=== PATIENT | male | born 1945 | race Caucasian/White ===

== ENCOUNTER 2018-07-05 05:51 | Day surgery (SDC) | payer MEDICARE, SELFPAY ==
[2018-07-05] VITALS (7 sets, daily range): BP systolic 109–129; BP diastolic 70–72; PULSE 65–76; RESP 15–16; TEMP 36.1–36.6; O2SAT 92–100; BMI 22.1
[2018-07-05 06:37] LABS: Anion Gap 7 (5-15); BUN 20 mg/dL (7-18); BUN/Creat Ratio 14.8 RATIO (10-20); Chloride 98 mmol/L (98-107); Creatinine, Serum 1.35 mg/dL (0.70-1.30); EST Glomerular Filtration Rate 55 mL/min (>60); Est Glom Filt Rate - Afr Amer 67 mL/min (>60); Estimated Creatinine Clearance 50.23 ml/min; Glucose 101 mg/dL (74-106); Potassium 3.4 mmol/L (3.5-5.1); Sodium Level 134 mmol/L (136-145)
--- NOTE | 2018-07-05 06:48 | PCM.HP.BLA ---
History and Physical Date of Admission: 07/05/18 HISTORY AND PHYSICAL ? Bud Hawkins 1945 ? ? REFERRING PHYSICIAN: ??Kali Gil, DO ? CHIEF COMPLAINT: ??Consult (Consult Rt inguinal hernia) ? HPI: Bud is a 73 year old male with a complaint of a bulge?with minimal discomfort?in his right inguinal region. ?The patient denies true?discomfort in this area. ?The patient can reduce the right inguinal hernia when he is laying down. ? The patient notes no symptoms of bowel obstruction and denies nausea or vomiting. The patient was seen by his?primary care physician ?who felt the patient has a hernia. ?Bud was referred for evaluation and treatment. ? The patient is being seen by me today at the request of Dr. Kali Gil, DO?for my opinion and advice regarding a right inguinal hernia. ? ? PAST?MEDICAL?HISTORY PAST MEDICAL HISTORY Diagnosis Date ? Essential hypertension ? ? OCD (obsessive compulsive disorder) ? PAST?SURGICAL?HISTORY PAST SURGICAL HISTORY Procedure Laterality Date ? NONE ? CURRENT?MEDICATIONS ? Current Outpatient Prescriptions: amLODIPine (NORVASC) 5 mg tablet ? losartan-hydrochlorothiazide (HYZAAR) 100-25 mg per tablet ? Valsartan-Hydrochlorothiazide 160-12.5 mg per tablet ? methylphenidate (RITALIN) 10 mg tablet Take 10 mg by mouth three times daily. ARIPiprazole (ABILIFY) 10 mg tablet Take 10 mg by mouth once daily. venlafaxine ER (EFFEXOR XR) 150 mg 24 hr capsule Take 150 mg by mouth once daily. ginkgo biloba (GINKOBA ORAL) Take by mouth. VITAMIN E ORAL Take by mouth. ? No current facility-administered medications for this visit. ? ALLERGIES: Penicillins ? PERSONAL HISTORY: SOCIAL?HISTORY Social History ??Marital status: Unknown ?Spouse name: ?Years of education: ?Number of children: ? Social History Main Topics ??Smoking status: Never Smoker ?Smokeless tobacco: Never Used ?Alcohol use: No ?Drug use: No ? FAMILY HISTORY: FAMILY?HISTORY No family history on file. ? REVIEW OF SYMPTOMS: ??The review of systems data was entered by the nurse and reviewed by me ? Nursing Notes: Kylie Bajwa CAN DRYER ?05/06/2018 ?3:58 PM ?Signed REVIEW OF SYSTEMS: ?General:???The patient denies fatigue, denies weight loss, denies weight gain, denies feeling hot, and NOTES feelings of cold. ?Eyes: ?The patient denies glaucoma, denies eye injury/surgery, wears glasses or contacts. ?Ear/Nose/Throat: ?The patient denies allergies, denies hayfever, denies ear infections, and denies bloody noses. ?Cardiovascular: ?The patient denies chest pain, denies heart disease, NOTES high blood pressure,denies cardiac stent, denies prior heart attack, denies irregular heart beat, denies high cholesterol, ?denies poor circulation, denies heart failure, other cardiac issues, denies claudication, denies cold feet, denies peripheral arterial stent. ?Respiratory: ?The patient denies tuberculosis, denies pneumonia, denies frequent cough, denies pulmonary embolism, denies shortness of breath, and denies coughing up blood. ?Gastrointestinal: ?The patient denies difficulty swallowing, denies acid reflux, denies ulcers, denies vomiting, denies jaundice/hepatitis, denies gallbladder problems, denies black or tarry stools, denies hemorrhoids, denies bleeding from rectum, denies diverticulitis, denies constipation, denies diarrhea, denies loss of stool control, and NOTES hernias. ?Kidney/Bladder: ?The patient denies kidney stones, denies urine infections, and denies bloody urine. ?Skin: ?The patient denies a history of skin cancer, denies bleeding/changing moles, and denies a history of skin rash. ?Neurologic: ?The patient denies a history of epilepsy/convulsions, denies headaches, denies head/spinal injuries, and denies stroke/TIA. ?Psychiatric: ?The patient NOTES psychiatric medications, NOTES depression, and denies voices, denies substance abuse. ?Endocrine: ?The patient denies thyroid disorders, denies diabetes, and denies hormonal problems. ?Hematologic: ?The patient denies a history of bruising, denies bleeding, and denies anemia, denies blood clots. ?Infections: ?The patient denies a history of measles and mumps, denies rheumatic fever, and denies sexually transmitted diseases. ?Musculoskeletal: ?The patient denies back pain/injury, denies back problems, denies sciatica, denies knee/foot trouble, denies arthritis, or denies gout. ? ? When was patient's last Mammogram screening? N/A ? ?Last Colonoscopy: ?None ? Kylie Bajwa LPN ? PHYSICAL EXAMINATION: ? General: ?The patient is 73 year old male, well nourished, well hydrated in no acute distress. ?The patient is oriented to time, place, and person. ? VITALS: Blood pressure 146/76, pulse 68, height 172.7 cm (5' 8), weight 71.7 kg (158 lb).?Body mass index is 24.02 kg/m?.? ? HEENT: ?Normal cephalic, ataumatic, pupils are equally round, sclera are anicteric, mucous membranes are moist, oropharynx is clear. ?Neck has no masses, asymmetry or lymphadenopathy. ?Thyroid is unremarkable. ? Respiratory: ?Clear to auscultation and percussion. ?Normal respiratory excursion and pattern. ? Cardiac: ?Examination is regular rate and rhythm. ? Abdominal exam: ?Soft, nontender, ?with no palpable masses. ?No hepatosplenomegaly. ?A?moderate reducible right inguinal hernia and a smaller reducible left inguinal hernia on exam. ? Intraoffice ultrasound was performed which demonstrated and verified both the right and left inguinal hernias ? Rectal exam: ?exam deferred ? Extremities: ?no clubbing, cyanosis or edema. ?No adenopathy. ? Other: ? ? LABORATORY VALUES: As Noted ? RADIOLOGIC STUDIES: ?As Noted ? Assessment ? IMPRESSION: bilateral inguinal hernias ? PLAN: ??My plan is to perform a laparoscopic bilateral inguinal hernia repair with mesh. ?The planned surgical procedure was discussed extensively with the patient. ?The risks, benefits, anticipated outcomes and possible complications were mentioned. ?Bud wilsonands that all hernia repair surgery has a chance of recurrence and/or chronic post operative pain. ?My staff has also explained the procedure in understandable terms and the patient was given the option to take printed material concerning the planned procedure. ?The patient had the opportunity to ask questions concerning the planned procedure. ?The patient freely consents to the planned procedure. ? ? ? A letter was sent to Dr. Kali Gil, DO?indicating the above finding for this patient. ? Diagnoses: (K40.20) Non-recurrent bilateral inguinal hernia without obstruction or gangrene ?(primary encounter diagnosis) ? Anticipated CPT Code: laparoscopic bilateral inguinal hernia repair with mesh - 71523 x 2-000 ? Anticipated Anesthetic: General ? Patient weight: ?Blood pressure 146/76, pulse 68, height 172.7 cm (5' 8), weight 71.7 kg (158 lb).?BMI: ?Body mass index is 24.02 kg/m?. ? Planned antibiotic: clindamycin 900mg IVPB relationship management lead to OR ? SCDs needed - Yes ? Return to Clinic: The patient is instructed to follow-up with me 1 week post operatively. ? Andrés Garcia MD
--- NOTE | 2018-07-05 07:09 | EKG12_ITS ---
Test Reason : PREOP Blood Pressure : / mmHG Vent. Rate : 072 BPM Atrial Rate : 072 BPM P-R Int : 172 ms QRS Dur : 106 ms QT Int : 386 ms P-R-T Axes : 071 051 047 degrees QTc Int : 422 ms Normal sinus rhythm Normal ECG Confirmed by DARWIN OLIVA, ALISON ([id number]), editorial writer BENJAMIN CARLOS ([id number]) on 07/08/2018 8:51:21 AM Referred By: Andrés Garcia Confirmed By:ALISON GRANADOS MD
[2018-07-05] MEDS: Bupivacaine Mpf 0.5% 30 ML VIAL (08:55)
--- NOTE | 2018-07-05 08:58 | PCM.OPRPT ---
Report of Operation Date of Procedure: 07/05/18 Pre-Operative Diagnosis: right, suspectedc left inguinal hernia Post-Operative Diagnosis: bilateral direct inguinal hernia Surgery/Procedure Performed:: bilateral laparoscopic inguinal hernia with medium bard 3 d - max mesh Description of Surgical Findings:: right-Bard 3-D Max mesh reference #[id number] lot number [id number] expires 10/03/2022 left-Bard 3-D Max mesh reference number [id number] lot [id number] 09/02/2021 Type of Anesthesia:: General Specimen's removed: none Drains: urine 250 Estimated Blood Loss (mL): 20 Fluids Replaced: 1150 Description of Procedure: The patient was brought to the operating suite. Sign in was performed verifying patient, site, procedure, position, and DVT prophylaxis with SCDs. Patient received 100 mg clindamycin antibiotic prophylaxis. Following induction of general anesthetic, a horta catheter was placed. The patient?s abdomen was prepped and draped in the usual fashion. Timeout was performed verifying patient, site, position. Local anesthetic was injected below the umbilicus. Incision made and dissection carried down to the umbilical root fascia. 2 stay sutures were placed. Incision made in the fascia, the peritoneum entered under direct visualization. A 10 mm Lama trocar was inserted and secured with the stay sutures. Pneumoperitoneum to 15 mmHg was insufflated. Visual inspection revealed an obvious right direct inguinal hernia with small bowel within the hernia defect and an obvious left direct inguinal hernia also with small bowel defect. 2 - 5mm ports were placed in the standard position. The peritoneum was incised and prepared and the dissection was carried out along the space down to the preperitoneal space of the inguinal canal. Dissection was carried down identifying the pubic tubercle, Sebastian?s ligament, the inferior epigastric vessels, and lateral dissection. A defect was noted Following this, a Bard 3-D Max mesh was placed in the right inguinal space. This was secured with a pro-tack tacker along Sebastian?s ligament. The mesh was then further secured over the transversus arch using a secure strap absorbable tacker. Following this, the peritoneum was closed with a running 3-0V lock suture sewn laparoscopically. a similar procedure was performed for the left inguinal space. 5 ports were removed under direct visualization with no signs of bleeding. Pneumoperitoneum was released. The Lama trocar was removed. The umbilical fascial suture was secured area did skin was closed with interrupted 4-0 Monocryl subcuticular sutures. Steri-Strips and bandages were applied. The patient was brought to recovery room in stable condition. - Admit VTE Documentation VTE Present on Admission: No VTE Mechan Device Prophylaxis: SCD's VTE Pharm Prophylaxis ordered?: No
--- NOTE | 2018-07-05 09:03 | OP.PCM_ITS ---
Report of Operation Date of Procedure: 07/05/18 Pre-Operative Diagnosis: right, suspectedc left inguinal hernia Post-Operative Diagnosis: bilateral direct inguinal hernia Surgery/Procedure Performed:: bilateral laparoscopic inguinal hernia with medium bard 3 d - max mesh Description of Surgical Findings:: right-Bard 3-D Max mesh reference #[id number] lot number [id number] expires 10/03/2022 left-Bard 3-D Max mesh reference number [id number] lot [id number] 09/02/2021 Type of Anesthesia:: General Specimen's removed: none Drains: urine 250 Estimated Blood Loss (mL): 20 Fluids Replaced: 1150 Description of Procedure: The patient was brought to the operating suite. Sign in was performed verifying patient, site, procedure, position, and DVT prophylaxis with SCDs. Patient received 100 mg clindamycin antibiotic prophylaxis. Following induction of general anesthetic, a horta catheter was placed. The patient?s abdomen was prepped and draped in the usual fashion. Timeout was performed verifying patient, site, position. Local anesthetic was injected below the umbilicus. Incision made and dissection carried down to the umbilical root fascia. 2 stay sutures were placed. Incision made in the fascia, the peritoneum entered under direct visualization. A 10 mm Lama trocar was inserted and secured with the stay sutures. Pneumoperitoneum to 15 mmHg was insufflated. Visual inspection revealed an obvious right direct inguinal hernia with small bowel within the hernia defect and an obvious left direct inguinal hernia also with small bowel defect. 2 - 5mm ports were placed in the standard position. The peritoneum was incised and prepared and the dissection was carried out along the space down to the preperitoneal space of the inguinal canal. Dissection was carried down identifying the pubic tubercle, Sebastian?s ligament, the inferior epigastric vessels, and lateral dissection. A defect was noted Following this, a Bard 3-D Max mesh was placed in the right inguinal space. This was secured with a pro-tack tacker along Sebastian?s ligament. The mesh was then further secured over the transversus arch using a secure strap absorbable tacker. Following this, the peritoneum was closed with a running 3-0V lock suture sewn laparoscopically. a similar procedure was performed for the left inguinal space. 5 ports were removed under direct visualization with no signs of bleeding. Pneumoperitoneum was released. The Lama trocar was removed. The umbilical fascial suture was secured area did skin was closed with interrupted 4-0 Monocryl subcuticular sutures. Steri-Strips and bandages were applied. The patient was brought to recovery room in stable condition. - Admit VTE Documentation VTE Present on Admission: No VTE Mechan Device Prophylaxis: SCD's VTE Pharm Prophylaxis ordered?: No
--- NOTE | 2018-07-05 09:08 | DCINST_ITS ---
Discharge Diet: Light diet - advance as tolerated Discharge Activity: Return to Normal Activity, May Drive - when you are no longer taking narcotic pain medications., May Shower - with the bandage in place 1-2 days after surgery. Lifting Restrictions: 20 pounds for 8 weeks. Additional Activity Instructions:: Climbing stairs is fine, walking is encouraged. Sitting in bed may be uncomfortable. Sitting up using your lateral muscles (sitting up sideways) is usually more comfortable. Do not drive, work heavy equipment of sign legal documents for 24 hours. If your hernia repair was an ingunial repair, you may have scrotal swelling, an ice pack and/or athletic support can provide more comfort. Pain medications may cause nausea, you should typically eat light foods as you take your pain medications. Pain medications may also cause constipation. If you have difficulty with this, discuss with your doctor. Call your doctor if your incision/area has: Continuous Slow Oozing, Sudden Increased Bleeding, Increased Pain/ Swelling, Increased Redness, Foul Smelling Discharge Call your doctor if you observe: Fever of 101 or Higher Suture Line Care: Avoid Pulling/Pushing, Avoid Pinching/Bending Additional Dressing/Incision Instructions:: Leave the operative bandage on for 2-3 days. When you remove the bandage, leave the steri-strips on place until your follow up appointment or they fall off. Allergies/Adverse Reactions: Allergies Penicillins Allergy (Verified 06/28/18 10:09) Hives Medications to take at Discharge Amlodipine Besylate 5 mg PO DAILY 06/28/18 Aripiprazole [Abilify] 2 mg PO DAILY 06/28/18 Methylphenidate HCl [Methylphenidate ER] 10 mg PO DAILY 06/28/18 Valsartan/Hydrochlorothiazide [Valsartan-Hctz 160-25 mg Tab] 1 tab PO DAILY 06/28/18 Venlafaxine HCl [Effexor Xr] 37.5 mg PO DAILY 06/28/18 Oxycodone [Oxyir] 5 mg PO Q6H PRN PRN 7 Days #12 tab 07/05/18 The following prescriptions were given: Oxycodone [Oxyir] 5 mg PO Q6H PRN PRN 7 Days #12 tab PRN Reason: Severe Pain (6-10/10) Orders to be completed after discharge: 12 Lead EKG [[facility]] Location: None Selected Basic Metabolic Profile (BMP) Location: Laboratory Primary Care Physician: Kali Gil DO [Primary Care Provider] - Test Results: Test results from this visit will be discussed in further detail at your follow- up appointment, if applicable. Please Follow Up With: Andrés Garcia MD - [phone] When: Plan to have a follow up appointment in 7 days. Call to schedule.
[2018-07-05] MEDS: oxyCODONE 5 MG Tablet PO (10:35)
== END 2018-07-05 12:11 | disposition home or self-care (01) ==
LOC: SDC 05:52 → AC 05:53
PROVIDERS: Anesthesiology; Family Provider Family Medicine; PCP Family Medicine; Referring Provider Surgery; Visit Provider Surgery
PROC: (CPT 49650; principal; 2018-07-05 07:10)
DX: K40.20 Bilateral inguinal hernia, without obstruction or gangrene, not specified as recurrent (principal); F41.9 Anxiety disorder, unspecified; F32.9 Major depressive disorder, single episode, unspecified; Z79.899 Other long term (current) drug therapy; I10 Essential (primary) hypertension; F42.9 Obsessive-compulsive disorder, unspecified
CPT/HCPCS: 00830; 49505; 36415; 80048; 93005; J7120; C1781; J2405

== ENCOUNTER → 2020-02-14 | Outpatient (CLI) | payer MEDICARE, SELFPAY ==
[2018-07-05 06:18] VITALS: BMI 22.1
== END | disposition home or self-care (01) ==
PROVIDERS: PCP Family Medicine; Referring Provider Nurse Practitioner Adult Health; Visit Provider Nurse Practitioner Adult Health
DX: N39.0 Urinary tract infection, site not specified (principal)
CPT/HCPCS: 87077; 87086; 87088; 87186

== ENCOUNTER → 2020-10-22 13:37 | Outpatient (CLI) | payer MEDICARE, SELFPAY ==
[2018-07-05 06:18] VITALS: BMI 22.1
[2020-10-22 15:18] LABS: Anion Gap 4 (5-15); BUN 24 mg/dL (7-18); BUN/Creat Ratio 21.2 RATIO (10-20); Chloride 102 mmol/L (98-107); Creatinine, Serum 1.13 mg/dL (0.70-1.30); EST Glomerular Filtration Rate 67 mL/min (>60); Est Glom Filt Rate - Afr Amer 82 mL/min (>60); Glucose 101 mg/dL (74-106); Potassium 3.6 mmol/L (3.5-5.1); Sodium Level 137 mmol/L (136-145)
== END ==
PROVIDERS: PCP Student in an Organized Health Care Education/Training Program; Visit Provider Student in an Organized Health Care Education/Training Program
DX: N18.2 Chronic kidney disease, stage 2 (mild) (principal); I12.9 Hypertensive chronic kidney disease with stage 1 through stage 4 chronic kidney disease, or unspecified chronic kidney disease; E87.1 Hypo-osmolality and hyponatremia
CPT/HCPCS: 36415; 80048

== ENCOUNTER 2020-10-28 13:22 | Emergency (ER) | payer MEDICARE, SELFPAY ==
[2018-07-05 06:18] VITALS: BMI 22.1
[2020-10-28 13:23] VITALS: BP 128/69; PULSE 84; RESP 16; TEMP 36.7; O2SAT 97; BMI 21.9
--- NOTE | 2020-10-28 14:11 | RAD_ITS ---
STUDY: X-RAY - LEFT FEMUR REASON FOR STUDY: Male, 75 years old. Pain, no history of trauma. TECHNIQUE: AP and lateral view(s) of the femur. COMPARISON: None. FINDINGS: Deformity of the mid third of the femoral shaft could be due to old injury. No demonstrated acute fracture. Mild focal cortical thickening of the medial aspect of the mid femoral shaft. Possible adjacent soft tissue swelling. RAD/Femur Min 2 Views IMPRESSION: Deformity of the mid third of the femoral shaft with questionable mild cortical thickening. Further evaluation with MRI is recommended. No demonstrated acute fracture. Electronically Signed: Jordan Thurman MD at 15:13 EDT Tel , Service support ,
--- NOTE | 2020-10-28 14:13 | ED.VIS.LOWEX ---
HPI History of Present Illness HPI Narrative: Older male atraumatic intermittent left thigh pain. Chief Complaint: Lower Extremity Injury Informant: patient and spouse/S.O. Occured/Mechanism Mechanism/Context: Yes unknown Onset/Context/Timing Onset: Days Timing: Intermittent Quality of Pain: Aching Current Severity: Mild Maximum Severity: Mild Narrative Narrative: 75-year-old male history of hypertension. States since he has had intermittent pain in his left thigh. No fall injury or trauma. No history of DVT or PE. No recent travel surgery or immobilization. No fever or chills. No swelling. It usually worse at night. Sometimes worse with ambulation. He denies any trauma whatsoever. Is never had pain like this before. Currently he says is not too bad. Prior similar symptoms: No Recent Illness/Hospitalization: No PFSH COUNTS INCLUDE 234 BEDS AT THE [facility] Medical History (Updated 10/28/20 @ 15:[address] Mirza Ibrahim MD) Depression Hernia Hypertension Home Medications amlodipine 5 mg PO DAILY 06/28/18 [History Last Taken Unknown] aripiprazole 2 mg PO DAILY 06/28/18 [History Last Taken Unknown] methylphenidate HCl 10 mg PO DAILY 06/28/18 [History Last Taken 07/05/18 04:00] valsartan-hydrochlorothiazide 1 tab PO DAILY 06/28/18 [History Last Taken Unknown] venlafaxine [Effexor XR] 37.5 mg PO DAILY 06/28/18 [History Last Taken Unknown] hydrocodone-acetaminophen 1 tab PO Q6H PRN 4 Days #14 tab 10/28/20 [Rx Last Taken Unknown] Allergy/AdvReac Type Severity Reaction Status Date / Time oxycodone Allergy Swelling Verified 10/28/20 13:23 Penicillins Allergy Swelling Verified 10/28/20 13:23 Social History Smoking Status: Never smoker ROS ROS ED ROS Narrative Patient denies any recent illness. He denies any nausea, vomiting, diarrhea or fever. Review of Systems ROS Unobtainable: Denies due to encephalopathy Constitutional Constitutional ED: Denies chills or fever(s) Eyes Eyes: Denies change in vision ENT ENT ED: Denies ear pain or sore throat Cardiovascular Cardiovascular: Denies chest pain Respiratory/Chest Respiratory/Chest: Denies dyspnea Gastrointestinal Gastrointestinal: Denies abdominal pain, diarrhea, nausea or vomiting Genitourinary Genitourinary ED: Denies dysuria Musculoskeletal Musculoskeletal: Denies myalgias Integumentary Denies rash Neurologic Neurologic: Denies headache(s) Psychiatric Psychiatric: Denies depression Endocrine Endocrinology: Denies polyuria Hematologic/Lymphatic Hematologic/Lymphatic: Denies easy bruising Allergic/Immunologic Allergic/Immunologic ED: Denies urticaria EXAM Physical Exam Narrative Exam Narrative: Older male no acute distress. Vital signs stable afebrile. Heart and lung and abdominal exam unremarkable. Nontender. Left thigh appears normal. Normal femoral pulse. Normal DP pulse. Full range of motion of left hip, knee and ankle. No swelling. No deformity. No redness. The thigh itself is nontender without any signs of trauma or swelling. There is no edema or cords. He has normal motor strength and sensation of the left leg and foot. Const Vital Signs: 10/28/20 13:23 Temperature 98.0 F Temperature Source Temporal Pulse Rate 84 Respiratory Rate 16 Blood Pressure 128/69 H Blood Pressure Mean 88 Pulse Ox 97 Oxygen Delivery Method Room Air Positive well nourished and well developed General Appearance ED: well developed HEENT normocephalic and atraumatic Eyes PERRL Neck full ROM and supple Thyroid: Negative for tender Chest Wall inspection of chest normal Resp normal respiratory effort Cardio regular rate, regular rhythm and no murmurs GI non-tender, non-distended and no masses Auscultation: normoactive bowel sounds Palpation: soft; Negative for tender Back/Spine no CVA tenderness Extremity normal to inspection and full ROM General Extremety ED: Negative for cyanosis or edema General Extremity: Negative for cyanosis or edema Neuro oriented x3 and CN's II-XII intact bilaterally Sensorium / Orientation: alert, oriented to person, oriented to place and oriented to time Psych mental status grossly normal Skin Rashes: no rashes MDM MDM MDM Narrative Medical decision making narrative: Patient has atraumatic left thigh pain. Has a normal exam. X-ray being obtained. He has no risk factors for DVT or PE. Repeat exam at 3:15 shows no change. Patient can ambulate. He will have an outpatient venous study ordered even though my suspicion for DVT is very low. He will be written for Nasseo for pain. Follow-up with his primary care physician. 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 Further evaluation with MRI is recommended. No demonstrated acute fracture. Electronically Signed: Jordan Thurman MD at 15:13 EDT Tel , Service support , Left femur x-ray 2 view shows no acute abnormality. This is interpreted by myself and also the radiologist. There is a deformity of bone patient had an old femur fracture at a much younger age and I suspect this is the way it is healed. I went over the films with the patient and his spouse. Discharge Plan Triage Chief Complaint: Lower Extremity Injury ED Provider: Mirza Ibrahim Dx/Rx/DC Orders Clinical Impression: Musculoskeletal pain of left lower extremity Prescriptions: New hydrocodone-acetaminophen 5-325 mg tablet 1 tab PO Q6H PRN (Reason: pain) 4 Days Qty: 14 RF: 0 No Action venlafaxine [Effexor XR] 37.5 MG capsule,extended release 24hr 37.5 mg PO DAILY RF: 0 methylphenidate HCl 10 MG tablet extended release 10 mg PO DAILY RF: 0 amlodipine 5 MG tablet 5 mg PO DAILY RF: 0 valsartan-hydrochlorothiazide 160-25M tablet 1 tab PO DAILY RF: 0 aripiprazole 2 MG tablet 2 mg PO DAILY RF: 0 Primary Care Provider: Charli Santana Referrals: Charli Santana DO [Primary Care Provider] - Activity Restrictions/Additional Instructions: Vascular lab will call you tomorrow to set up a time usually in the morning to do an ultrasound of your leg to rule out a blood clot. Andrews for more severe pain. Make sure you drink plenty of fluids and fiber to prevent constipation. Follow-up with your doctor if not improving. Disposition Disposition: Home, self care
== END 2020-10-28 15:37 | disposition home or self-care (01) ==
PROVIDERS: Emergency Provider Emergency Medicine; PCP Student in an Organized Health Care Education/Training Program
DX: M79.652 Pain in left thigh (principal); I10 Essential (primary) hypertension; F32.9 Major depressive disorder, single episode, unspecified; Z79.899 Other long term (current) drug therapy
CPT/HCPCS: 73552; 99282

== ENCOUNTER → 2020-10-29 13:51 | Outpatient (CLI) | payer MEDICARE, SELFPAY ==
[2020-10-28 13:23] VITALS: BMI 21.9
--- NOTE | 2020-10-29 13:55 | VDLE_ITS ---
Reason For Study: LLE PAIN RIGHT LEFT CFV is compressible, spontaneous, phasic, GSV is normal. competent and demonstrates normal CFV is compressible, spontaneous, phasic, augmentation. competent, and demonstrates normal Procedure augmentation. This is a venous duplex using B-mode, color FV is compressible, spontaneous, phasic, flow and spectral Doppler. competent and demonstrates normal Exam performed in department. augmentation. The exam was diagnostic. POP V is compressible, spontaneous, phasic, A preliminary report was called and/or faxed competent and demonstrates normal to Dr. Charli Santana @ [phone] @ 2:15 pm. augmentation. T/P Trunk is compressible. PTV is compressible. LT PerV is compressible. VL/Venous Duplex US, Unilateral Interpretation Summary There is no evidence of left lower extremity deep vein thrombosis. Left great s aphenous vein appears patent and compressible segmentally. Normal flow patterns right common femoral vein Ordering Physician: Mirza Ibrahim Referring Physician: Charli Santana Performed By: Anne Ca, MARKELLCS, RVT
== END ==
PROVIDERS: PCP Student in an Organized Health Care Education/Training Program; Referring Provider Emergency Medicine; Visit Provider Emergency Medicine
DX: M79.652 Pain in left thigh (principal)
CPT/HCPCS: 93971

== ENCOUNTER → 2020-12-07 15:59 | Outpatient (CLI) | payer MEDICARE, SELFPAY ==
--- NOTE | 2020-12-07 16:45 | MRI_ITS ---
HISTORY: LEFT femur pain, abnormal xray. Hx of left femur fracture as a child, recent new injury. TECHNIQUE: Routine MRI protocol was performed of the left femur. IV Contrast dosage and agent: None. # of images incl. paperwork: 224. COMPARISON: XR 10/28/2020. FINDINGS: BONE: Mild cortical thickening and faint sclerosis of the left mid femoral diaphysis without associated bone marrow edema or confluent T1 signal abnormality. No acute fracture or other acute bone marrow signal abnormality identified. JOINTS: Normal alignment of the left hip without dislocation. SOFT TISSUES: Mild anterior compartment and posterior compartment intramuscular edema in the distal thigh, inferior extent incompletely imaged. No extraosseous soft tissue mass or fluid collection in the left thigh. Intact visualized hamstring and iliopsoas tendinous attachments. OTHER: Trace left scrotal hydrocele. MRI/Lower Ext/No Jt/w/o IMPRESSION: Chronic fracture of the left mid femoral shaft. No acute fracture identified in the left femur. Mild intramuscular edema anteriorly and posteriorly in the distal thigh, from mild strain or myositis. at 1623 Reported and signed by: Risa Mays MD Electronically Signed: Risa Mays MD at 16:22 EDT Tel , Service support ,
== END ==
PROVIDERS: PCP Student in an Organized Health Care Education/Training Program; Referring Provider Student in an Organized Health Care Education/Training Program; Visit Provider Student in an Organized Health Care Education/Training Program
DX: M89.8X5 Other specified disorders of bone, thigh (principal); M79.652 Pain in left thigh; Z87.81 Personal history of (healed) traumatic fracture
CPT/HCPCS: 73718

== ENCOUNTER → 2020-12-17 | Outpatient (CLI) | payer MEDICARE, SELFPAY | END | disposition home or self-care (01) | LOC: LABSPEC 15:52 | PROVIDERS: PCP Student in an Organized Health Care Education/Training Program; Visit Provider Nurse Practitioner Adult Health | DX: R82.998 Other abnormal findings in urine (principal) | CPT/HCPCS: 87086; 87088; 87186 ==

== ENCOUNTER → 2021-01-03 12:56 | Outpatient (CLI) | payer MEDICARE, SELFPAY ==
--- NOTE | 2021-01-03 13:00 | CT_ITS ---
STUDY: CT ABDOMEN AND PELVIS WITHOUT CONTRAST REASON FOR EXAM: Male, 75 years old. Recurrent urinary tract infection. CHRONIC CYSTITIS WO HEMATURIA RADIATION DOSAGE (If Supplied By Facility): CTDIvol = ( 8.34 ) mGy, DLP = ( 402.30 ) mGycm TECHNIQUE: Transaxial images were obtained from the dome of the diaphragm to the symphysis pubis without oral contrast, and without intravenous contrast. Sagittal and coronal images were reconstructed. Individualized dose optimization techniques were used for this CT. COMPARISON: None. FINDINGS: The visualized lung bases are unremarkable. The visualized portions of the heart are within normal limits. Normal liver. Normal gallbladder and extrahepatic biliary system. There are multiple benign calcified granulomata of the spleen. Normal pancreas. Normal bilateral adrenal glands. Normal right kidney. Normal left kidney. There is a moderate hiatal hernia. Normal small intestine. Normal colon. There is moderate stool. The appendix is visualized and appears normal. Normal abdominal aorta. Normal inferior vena cava. Normal retroperitoneum. There is diffuse wall thickening of the urinary bladder. There is enlargement of the prostate gland. There is no free fluid in the abdomen or pelvis. There is postoperative change of the lower abdominal wall. Degenerative change of the lower spine. CT/Abdomen/Pelvis without Cont IMPRESSION: No stones or hydronephrosis. Enlarged prostate. Wall thickening of the urinary bladder. Hiatal hernia. Electronically Signed: Nick Pino MD at 17:12 EDT , Service support ,
[2021-01-03 15:25] LABS: PSA,Total - Annual Screen 3.27 ng/mL (0.00-4.00)
== END ==
PROVIDERS: PCP Student in an Organized Health Care Education/Training Program; Referring Provider Nurse Practitioner Adult Health; Visit Provider Nurse Practitioner Adult Health
DX: N30.20 Other chronic cystitis without hematuria (principal); Z12.5 Encounter for screening for malignant neoplasm of prostate
CPT/HCPCS: 36415; 74176; 84153; G0103

== ENCOUNTER → 2022-07-10 | Outpatient (CLI) | payer MEDICARE, SELFPAY ==
[2022-07-10 15:26] LABS: Hematocrit 42.5 % (40-54); Hemoglobin 14.3 g/dL (13.0-16.5); Mean Corp Hgb Conc 33.6 g/dL (32-36); Mean Platelet Vol. 8.9 fl (6.2-12.0); Platelet Count 312 K/mm3 (150-450); RBC Distribution Width CV 11.7 % (11.6-14.6); RBC Distribution Width SD 39.5 fl (35.1-43.9); Red Blood Count 4.62 M/mm3 (4.6-6.2); White Blood Count 7.7 K/mm3 (4.4-11.0)
[2022-07-10 16:04] LABS: ALB/GLOB Ratio 1.3 RATIO (0.9-2.4); AST(SGOT) 30 U/L (15-37); Alanine Aminotransfer ALT/SGPT 27 U/L (16-61); Alkaline Phosphatase 88 U/L (45-117); Anion Gap 9 (5-15); BUN 23 mg/dL (7-18); BUN/Creat Ratio 16.9 RATIO (10-20); Calcium,Total 9.2 mg/dL (8.5-10.1); Chloride 95 mmol/L (98-107); Cholesterol 136 mg/dL (200); Creatinine, Serum 1.36 mg/dL (0.70-1.30); EST Glomerular Filtration Rate 54 mL/min (>60); Est Glom Filt Rate - Afr Amer 66 mL/min (>60); Globulin 3.1 g/dL (2.2-4.2); Glucose 95 mg/dL (74-106); High Density Lipoprotein 53 mg/dL; PSA,Total - Annual Screen 5.14 ng/mL (0.00-4.00); Potassium 3.7 mmol/L (3.5-5.1); Protein, Total 7.1 g/dL (6.4-8.2); Sodium Level 133 mmol/L (136-145); Triglycerides 121 mg/dL; Very Low Density Lipoprotein 24 mg/dL (5-40)
[2022-07-10 16:37] LABS: Hepatitis C Antibody Non-Reactive (Nonreactive)
== END | disposition home or self-care (01) ==
PROVIDERS: PCP Student in an Organized Health Care Education/Training Program; Visit Provider Student in an Organized Health Care Education/Training Program
DX: Z00.00 Encounter for general adult medical examination without abnormal findings (principal); I10 Essential (primary) hypertension; N40.1 Benign prostatic hyperplasia with lower urinary tract symptoms; N39.0 Urinary tract infection, site not specified; Z12.5 Encounter for screening for malignant neoplasm of prostate; Z11.59 Encounter for screening for other viral diseases
CPT/HCPCS: 36415; 80053; 80061; 84153; 85027; 86803; G0103

== ENCOUNTER 2022-07-11 15:41 | Emergency (ER) | payer MEDICARE, SELFPAY ==
[2022-07-11 15:42] VITALS: BP 116/67; PULSE 84; RESP 18; TEMP 36.7; O2SAT 99; BMI 21.9
--- NOTE | 2022-07-11 17:21 | EX.ED.DYSGE1 ---
HPI History of Present Illness Chief Complaint: Allergic Reaction Informant: patient and spouse/S.O. Narrative Narrative: Patient presents with a rash that started after Bactrim. Patient has BPH. He is going to have surgery for this. He has been getting recurrent UTIs for a while. If he is kept on antibiotics he does well. His primary physician put him on Bactrim. He just saw his urologist and they restarted this until surgery. He has been on this for about 2 weeks now. Over the last day or so he has developed a rash really throughout his body. He states it does itch but it does not hurt. He does not feel sick. No fevers or chills. No trouble breathing. He is not having any urinary symptoms. [facility] Medical History Depression Hernia Hypertension Rash Home Medications amlodipine 5 mg tablet 5 mg PO DAILY 06/28/18 [History Last Taken Unknown] aripiprazole 2 mg tablet 2 mg PO DAILY 06/28/18 [History Last Taken Unknown] methylphenidate HCl 10 mg tablet,extended release 10 mg PO DAILY 06/28/18 [History Last Taken 07/05/18 04:00] valsartan 160 mg-hydrochlorothiazide 25 mg tablet 1 tab PO DAILY 06/28/18 [History Last Taken Unknown] venlafaxine 37.5 mg capsule,extended release 24 hr (Effexor XR) 37.5 mg PO DAILY 06/28/18 [History Last Taken Unknown] hydrocodone-acetaminophen 5-325mg 5mg-325mg 1 tab PO Q6H PRN pain 4 days #14 tabs 10/28/20 [Rx Last Taken Unknown] nitrofurantoin monohydrate/macrocrystals 100 mg capsule 100 mg PO Q12 #14 CAPSULES 07/11/22 [Rx Last Taken Unknown] Allergy/AdvReac Type Severity Reaction Status Date / Time oxycodone Allergy Swelling Verified 07/11/22 15:43 Penicillins Allergy Swelling Verified 07/11/22 15:43 Social History Smoking Status: Never smoker ROS ROS ED Constitutional Constitutional ED: Denies chills, fever(s) or subjective Eyes Eyes: Denies change in vision ENT ENT ED: Denies rhinorrhea Cardiovascular Cardiovascular: Denies chest pain or palpitations Respiratory/Chest Respiratory/Chest: Denies cough or dyspnea Gastrointestinal Gastrointestinal: Denies abdominal pain, melena, nausea or vomiting Genitourinary Genitourinary ED: Denies dysuria, hematuria or urinary frequency Musculoskeletal Musculoskeletal: Denies back pain Integumentary Reports rash Neurologic Neurologic: Denies headache(s), paresthesias or weakness Endocrine Endocrinology: Denies polydipsia or polyuria Hematologic/Lymphatic Hematologic/Lymphatic: Denies easy bleeding or easy bruising Allergic/Immunologic Allergic/Immunologic ED: Denies urticaria EXAM Physical Exam Narrative Exam Narrative: Patient is awake alert no acute distress. He is sitting on the chair. Normal conversation. HEENT does not show any rash. I see no intraoral petechiae or lesions. Eyes show no injection. Neck shows no JVD or meningismus. Lungs are clear bilaterally. Oxygen is normal at 99% on room air showing no hypoxia. Heart is regular. I hear no murmur. Abdomen is soft completely nontender. No distention. Bowel sounds are normal. shows no CVA or suprapubic tenderness Extremities show no swelling or asymmetry. Pulses are normal. Skin: He does have diffuse rash. This seems to be match side to side. He has patches on antecubital fossa, forearms chest some abdomen some lower back upper thighs and behind knees. This is red blanching nonvesicular and nonbullous. Its not tender. Its not hot. Const Vital Signs: 07/11/22 15:42 Temperature 98.1 F Temperature Source Temporal Pulse Rate 84 Respiratory Rate 18 Blood Pressure 116/67 Blood Pressure Mean 83 Pulse Ox 99 Oxygen Delivery Method Room Air MDM MDM MDM Narrative Medical decision making narrative: I believe this rash is likely secondary to Bactrim. He does not feel ill. He is eating and drinking. He is not having urinary symptoms. I do not think we need to do blood work at this time. I am not seeing petechiae or purpura. I am seeing no vesicles. He is not febrile. I did look at old urine cultures. He had E. coli that was sensitive to Macrobid. I will get him started on this as he is allergic to penicillins. He does not know if he is ever had cephalosporins. We will have him follow-up with his urologist. We discussed that he can take some Bactrim because he gets itching that mostly bothers him at night. He was cautioned that this can sometimes make him slightly confused but a small dose should be appropriate. If he gets pain, fevers, abdominal cramps, blood in the urine or any other concerns they should return. Discharge Plan Triage Chief Complaint: Allergic Reaction ED Provider: Miguel Chaudhari Dx/Rx/DC Orders Clinical Impression: Antibiotic rash, Benign prostatic hyperplasia Instructions: ED Drug Reaction, Other Prescriptions: New nitrofurantoin monohyd/m-cryst [nitrofurantoin monohyd/m-cryst] 100 mg capsule 100 mg PO Q12 Qty: 14 0RF No Action venlafaxine [Effexor XR] 37.5 MG capsule,extended release 24hr 37.5 mg PO DAILY methylphenidate HCl 10 MG tablet extended release 10 mg PO DAILY amlodipine 5 MG tablet 5 mg PO DAILY valsartan-hydrochlorothiazide 160-25M tablet 1 tab PO DAILY aripiprazole 2 MG tablet 2 mg PO DAILY hydrocodone-acetaminophen 5-325 mg tablet 1 tab PO Q6H PRN (Reason: pain) 4 Days Qty: 14 0RF Primary Care Provider: Charli Santana Referrals: Felipe Guerrero MD [Med Staff - Active Staff] - Keep Ayla appointment Charli Santana DO [Primary Care Provider] - 3-5 Days if not improving Activity Restrictions/Additional Instructions: Stop the Bactrim. I have sent in a prescription for Macrobid to start tomorrow. Disposition Disposition: Home, Self Care
[2022-07-11 17:37] VITALS: BP 139/88; PULSE 67; RESP 15; O2SAT 98
== END 2022-07-11 17:43 | disposition home or self-care (01) ==
PROVIDERS: Emergency Provider Emergency Medicine; PCP Student in an Organized Health Care Education/Training Program; Visit Provider Emergency Medicine
DX: L27.0 Generalized skin eruption due to drugs and medicaments taken internally (principal); T36.8X5A Adverse effect of other systemic antibiotics, initial encounter; I10 Essential (primary) hypertension; N40.0 Benign prostatic hyperplasia without lower urinary tract symptoms; Z79.899 Other long term (current) drug therapy; Z87.440 Personal history of urinary (tract) infections
CPT/HCPCS: 99282

== ENCOUNTER → 2024-03-11 | Outpatient (CLI) | payer MEDICARE, SELFPAY ==
[2024-03-11 11:45] LABS: Hematocrit 43.7 % (40-54); Hemoglobin 14.4 g/dL (13.0-16.5); Mean Corpuscular Hgb 30.1 pg (27.0-32.0); Mean Corpuscular Volume 91.4 fL (80-94); Mean Platelet Vol. 9.4 fl (6.2-12.0); Platelet Count 281 K/mm3 (150-450); RBC Distribution Width CV 11.9 % (11.6-14.6); RBC Distribution Width SD 39.9 fl (35.1-43.9); Red Blood Count 4.78 M/mm3 (4.6-6.2); White Blood Count 5.5 K/mm3 (4.4-11.0)
[2024-03-11 12:01] LABS: PTHIN 83.9 pg/mL (18.4-80.1)
[2024-03-11 12:10] LABS: ALB/GLOB Ratio 1.2 RATIO (0.9-2.4); AST(SGOT) 16 U/L (15-37); Alanine Aminotransfer ALT/SGPT 18 U/L (16-61); Albumin, Serum 3.7 g/dL (3.2-5.0); Alkaline Phosphatase 89 U/L (45-117); Anion Gap 6 (5-15); BUN 24 mg/dL (7-18); BUN/Creat Ratio 19.5 RATIO (10-20); Calcium,Total 9.5 mg/dL (8.5-10.1); Chloride 102 mmol/L (98-107); Cholesterol 146 mg/dL (200); Creatinine, Serum 1.23 mg/dL (0.70-1.30); EST Glomerular Filtration Rate 61 mL/min (>60); Est Glom Filt Rate - Afr Amer 73 mL/min (>60); Globulin 3.1 g/dL (2.2-4.2); Glucose 97 mg/dL (74-106); High Density Lipoprotein 54 mg/dL; PSA,Total - Annual Screen 1.26 ng/mL (0.00-4.00); Phosphorus 3.2 mg/dL (2.5-4.9); Potassium 4.6 mmol/L (3.5-5.1); Protein, Total 6.8 g/dL (6.4-8.2); Sodium Level 137 mmol/L (136-145); Triglycerides 76 mg/dL; Very Low Density Lipoprotein 15 mg/dL (5-40)
[2024-03-11 12:44] LABS: Hepatitis C Antibody Non-Reactive (Nonreactive)
== END | disposition home or self-care (01) ==
LOC: LAB 10:26
PROVIDERS: PCP Student in an Organized Health Care Education/Training Program; Referring Provider Student in an Organized Health Care Education/Training Program; Visit Provider Student in an Organized Health Care Education/Training Program
DX: Z00.00 Encounter for general adult medical examination without abnormal findings (principal); N18.31 Chronic kidney disease, stage 3a; I12.9 Hypertensive chronic kidney disease with stage 1 through stage 4 chronic kidney disease, or unspecified chronic kidney disease; Z13.1 Encounter for screening for diabetes mellitus; Z13.220 Encounter for screening for lipoid disorders; Z11.59 Encounter for screening for other viral diseases; Z12.5 Encounter for screening for malignant neoplasm of prostate
CPT/HCPCS: 36415; 80053; 80061; 82306; 83970; 84100; 84153; 85027; 86803; G0103

== ENCOUNTER → 2025-02-22 | Outpatient (CLI) | payer MEDICARE, SELFPAY ==
[2025-02-22 16:39] LABS: Creatinine, Urine (random) 122.00 mg/dL (39.00-259.00); Microalbumin,Random Urine < 12.0 mg/L (<20 mg/L)
[2025-02-22 16:47] LABS: PTHIN 55 pg/mL (11-61)
[2025-02-22 17:07] LABS: Anion Gap 11 (5-15); BUN 25 mg/dL (4-19); BUN/Creat Ratio 21.5 RATIO (10-20); Calcium,Total 9.1 mg/dL (7.6-11.0); Carbon Dioxide 25.2 mmol/L (21.0-32.0); Chloride 99 mmol/L (98-108); Glucose 101 mg/dL (70-99); Potassium 3.8 mmol/L (3.3-5.1); Vitamin D,25 Hydroxy 18.9 ng/mL (30-100)
== END | disposition home or self-care (01) ==
LOC: LAB 14:44
PROVIDERS: PCP Student in an Organized Health Care Education/Training Program; Referring Provider Student in an Organized Health Care Education/Training Program; Visit Provider Student in an Organized Health Care Education/Training Program
DX: I12.9 Hypertensive chronic kidney disease with stage 1 through stage 4 chronic kidney disease, or unspecified chronic kidney disease (principal); N18.31 Chronic kidney disease, stage 3a; R79.89 Other specified abnormal findings of blood chemistry; E55.9 Vitamin D deficiency, unspecified
CPT/HCPCS: 36415; 80048; 82043; 82306; 82570; 83970